=== PATIENT | female | born 1935 | race Caucasian/White ===

== ENCOUNTER → 2016-05-28 08:28 | Outpatient (CLI) | payer MEDICARE ==
[2013-05-31 06:50] VITALS: BMI 21.6
[~2016-05-28 08:28] MED LIST: ALEVE220 MG OR; FISH OIL; NORVASC10 MG PO; TOPROL XL25 MG PO
== END | disposition home or self-care (01) ==
LOC: D.CT 08:28
DX: I65.23 Occlusion and stenosis of bilateral carotid arteries (principal)

== ENCOUNTER 2017-09-11 08:00 | Emergency (ER) | payer MEDICARE ==
[~2017-09-11] VITALS: Ht 165.1 cm; Wt 54.5 kg
[2017-09-11 08:03] VITALS: Ht 165.1 cm; Wt 54.5 kg
[2017-09-11] MEDS ORDERED: PREDNISONE2.5 MG PO (08:07)
[2017-09-11] MEDS ORDERED: ACETAMINOPHEN325 MG PO (08:08)
[2017-09-11] MEDS ORDERED: ZYRTEC10 MG PO (08:08)
[2017-09-11] MEDS ORDERED: RESTORIL15 MG PO (08:09)
[2017-09-11] MEDS ORDERED: ASPIRIN81 MG PO (08:09)
[2017-09-11] MEDS ORDERED: ALENDRONATE SOD70 MG PO (08:10)
[2017-09-11 09:15] LABS: BASOPHILS 0.3 % (0-2); EOSINOPHILS 0.2 % (0-7); HEMATOCRIT 39.8 % (36.0-48.0); HEMOGLOBIN 12.7 g/dL (12-16); IMMATURE GRANULOCYTES 0.2 % (0-5); LYMPHOCYTES 34.7 % (15-50); MCH 30.4 pg (26.0-34.0); MCHC 31.9 g/dL (31.0-37.0); MCV 95.2 fL (80.0-100.0); MEAN PLATELET VOLUME 9.4 fL (7.4-10.4); MONOCYTES 10.2 % (2-11); NEUTROPHILS 54.4 % (40-80); PLATELET COUNT 251 10x3/uL (130-400); RBC 4.18 10x6/uL (4.00-5.40); RDW 14.9 % (11.5-14.5); WBC 12.1 10x3/uL (4.8-10.8)
[2017-09-11 09:28] LABS: APPEARANCE HAZY (CLEAR); COLOR YELLOW (YELLOW); NITRITE POSITIVE (NEGATIVE); SPECIFIC GRAVITY 1.015 (1.005-1.020)
[2017-09-11 09:29] LABS: BACTERIA MANY /hpf (NONE SEEN); BILIRUBIN NEGATIVE (NEGATIVE); GLUCOSE NEGATIVE (NEGATIVE); KETONE NEGATIVE (NEGATIVE); PROTEIN TRACE mg/dL (NEGATIVE); UROBILINOGEN NORMAL (NORMAL)
[2017-09-11 09:31] LABS: EPITHELIAL CELLS 0-5 /hpf (0-5)
[2017-09-11 09:32] LABS: MUCUS <1+ /lpf (NONE SEEN)
[2017-09-11 09:33] LABS: ALBUMIN 3.2 g/dL (3.4-5.0); ANION GAP 10.7 mmol/L (8-16); BILIRUBIN - TOTAL 0.33 mg/dL (0.2-1.3); CALCIUM 8.9 mg/dL (8.5-10.1); CARBON DIOXIDE 29.3 mmol/L (21.0-32.0); CREATININE - SERUM 0.9 mg/dL (0.6-1.3); PROTEIN - SERUM 7.5 g/dL (6.4-8.2)
[2017-09-11] MEDS ORDERED: BENICAR20 MG PO ×2 (09:40→09:50)
[2017-09-11] MEDS ORDERED: MACROBID100 MG PO ×2 (09:40→09:50)
[2017-09-11 10:55] VITALS: BP 128/57
== END 2017-09-11 10:56 | disposition home or self-care (01) ==
LOC: D.ER 08:00
PROVIDERS: Emergency Medicine
DX: I10 Essential (primary) hypertension (principal); N39.0 Urinary tract infection, site not specified; R51 Headache; R53.1 Weakness

== ENCOUNTER 2019-12-24 11:13 | Emergency (ER) | payer MEDICARE ==
[~2019-12-24 11:13] MED LIST changes: +ACETAMINOPHEN325 MG PO; +ALENDRONATE SOD70 MG PO; +ASPIRIN81 MG PO; +BENICAR20 MG PO; +MACROBID100 MG PO; +PREDNISONE2.5 MG PO; +RESTORIL15 MG PO; +ZYRTEC10 MG PO
[2019-12-24 11:20] VITALS: BP 130/51; Ht 165.1 cm
[2019-12-24 12:20] LABS: BASOPHILS 0.4 % (0-2); EOSINOPHILS 1.2 % (0-7); HEMATOCRIT 36.1 % (36.0-48.0); HEMOGLOBIN 11.5 g/dL (12-16); IMMATURE GRANULOCYTES 0.2 % (0-5); LYMPHOCYTES 37.3 % (15-50); MCH 29.8 pg (26.0-34.0); MCHC 31.9 g/dL (31.0-37.0); MCV 93.5 fL (80.0-100.0); MEAN PLATELET VOLUME 8.7 fL (7.4-10.4); MONOCYTES 8.9 % (2-11); PLATELET COUNT 340 10x3/uL (130-400); RBC 3.86 10x6/uL (4.00-5.40); RDW 14.5 % (11.5-14.5); WBC 9.9 10x3/uL (4.8-10.8)
[2019-12-24 12:30] LABS: ANION GAP 9.6 mmol/L (8-16); APTT 41.4 SECONDS (22.8-39.4); CALCIUM 9.2 mg/dL (8.5-10.1); CARBON DIOXIDE 27.8 mmol/L (21.0-32.0); CREATININE - SERUM 1.2 mg/dL (0.6-1.3); INR 1.05 (0.85-1.17); POTASSIUM - SERUM 4.4 mmol/L (3.5-5.1); PROTIME 13.6 SECONDS (11.6-15.0)
[2019-12-24 12:36] LABS: ALBUMIN 3.1 g/dL (3.4-5.0); BILIRUBIN - TOTAL 0.2 mg/dL (0.2-1.3); PROTEIN - SERUM 8.3 g/dL (6.4-8.2)
[2019-12-24 12:44] LABS: BILIRUBIN NEGATIVE (NEGATIVE); KETONE NEGATIVE (NEGATIVE); NITRITE NEGATIVE (NEGATIVE); UROBILINOGEN NORMAL mg/dL (< 2)
[2019-12-24 12:46] LABS: BACTERIA FEW HPF (NONE SEEN); EPITHELIAL CELLS 0-5 /hpf (0-5); WHITE CELLS - URINE 0-5 HPF (0-4)
[2019-12-24] MEDS ORDERED: KEFLEX500 MG PO (15:17)
[2019-12-24] MEDS ORDERED: MACROBID100 MG PO (15:17)
== END 2019-12-24 15:38 | disposition home or self-care (01) ==
LOC: D.ER 11:13
PROVIDERS: Family Medicine
DX: N93.9 Abnormal uterine and vaginal bleeding, unspecified (principal); N39.0 Urinary tract infection, site not specified; I10 Essential (primary) hypertension